=== PATIENT | male | born 1950 | race Caucasian/White ===

== ENCOUNTER 2017-07-28 06:50 | Day surgery (SDC) | payer OTHER ==
[2013-07-28 21:25] VITALS: BMI 23.6
[2017-07-28] MEDS ORDERED: LIDOCAINE 1% 20 ML MDV ID ONE (07:15)
[2017-07-28] MEDS ORDERED: LIDOCAINE 1% 20 ML MDV ID STA (07:22)
[2017-07-28] MEDS ORDERED: DIPRIVAN 20 ML VIAL IVP ONE (08:35)
[2017-07-28] MEDS ORDERED: VERSED ONE (08:35)
--- NOTE | 2017-07-29 06:56 | OP ---
PROCEDURE: COLONOSCOPY TO THE CECUM WITH SNARE POLYPECTOMY. ENDOSCOPIST: Jam MCCOY M.D. INDICATION: HISTORY OF POLYPS. INSTRUMENT: [employer]ista App-[id number]. MEDICATION: PER ANESTHESIA. PROCEDURE: The patient was positioned for colonoscopy. The digital rectal exam was negative. The colonoscope was inserted through the anus and advanced to the cecum. The cecum was identified using the ileocecal valve and the appendiceal orifice as landmarks. The scope was slowly withdrawn through an adequately prepped colon. The [place] Bowel Prep score was 2+3+3=8. Two small polyps at 60 cm removed using snare cautery. Scattered diverticula in the left colon. Retroflex exam was otherwise normal. Withdrawal time 10 minutes , 2 seconds. PLAN: 1. Repeat colonoscopy in 5 years. CC: DR. JHONATAN JAFFE
[2017-07-29 13:53] VITALS: BP 120/64; TEMP 98.6
== END 2017-07-28 09:30 | disposition home or self-care (01) ==
LOC: SURG 06:50
PROVIDERS: ATTEND Internal Medicine Gastroenterology
DX: Z09 Encounter for follow-up examination after completed treatment for conditions other than malignant neoplasm (principal); Z86.010 Personal history of colon polyps; D12.4 Benign neoplasm of descending colon; K57.30 Diverticulosis of large intestine without perforation or abscess without bleeding

== ENCOUNTER 2018-06-26 08:16 | Outpatient (CLI) | payer OTHER ==
[2013-07-28 21:25] VITALS: BMI 23.6
--- NOTE | 2018-06-26 11:19 | MRI ---
EXAM: MRI brain without IV contrast. DATE: 26 July 2018. HISTORY: Memory loss x1 year. TECHNIQUE: Sagittal T1W, axial T2W, axial FLAIR, axial T1W, axial DWI, and coronal T2W GRE sequences of the brain were obtained using 1.2 Brionna magnet. No IV contrast. COMPARISON: None. FINDINGS: The ventricles, cisterns, sulci and subarachnoid spaces are enlarged due to involutional c hange. No midline shift, mass effect or abnormal extra-axial fluid collection is apparent. No acute infarct, hemorrhage or neoplasm is identified. Minimal T2W/FLAIR hyperintensity is observed in the white matter abutting each lateral ventricle. T2W slightly bright, T1W/IR intermediate signal in the anterior horn right lateral ventricle measures approximately 8.5 x 6.2 x 5.5 mm. Mildly prominent V irchow-Antoine spaces are observed within the inferior aspect of each basal ganglia. The pena - white matter differentiation is normal. The 7th/8th cranial nerve complexes, cerebellopontine angles, brai nstem, and visible cervical spinal cord are normal. There is no cerebellar tonsillar ectopia. The p ituitary gland is normal in size and signal. Corpus callosum is normal in size and configuration. R ight vertebral artery is diminutive in size. Left vertebral artery is dominant. Flow voids are pres ent in the major intracranial arteries and in the dural venous sinuses. No aneurysm, AVM or dural ve nous sinus thrombosis is apparent. No orbit abnormality is identified. The mastoid air cells are un remarkable. There is no acute sinusitis. No neck mass or lymphadenopathy is detected. No calvarial neoplasm or acute fracture is evident. IMPRESSIONS: 1. No acute infarct, hemorrhage, intra-axial neoplasm or hydrocephalus. 2. Minor cerebral leukomalacia - likely small vessel disease. 3. Moderate cerebral and mild cerebellar atrophy. Unexpected findin. Possible subependymal vs intraluminal nodule in the anterior horn right late ral ventricle. Recommend contrast-enhanced MRI for further evaluation.
== END 2018-06-26 08:17 | disposition home or self-care (01) ==
LOC: RAD 08:16
PROVIDERS: ATTEND Family Medicine
DX: R41.3 Other amnesia (principal)

== ENCOUNTER 2018-07-08 08:12 | Outpatient (CLI) ==
[2013-07-28 21:25] VITALS: BMI 23.6
--- NOTE | 2018-07-08 11:34 | MRI ---
EXAM: MRI brain with IV contrast. DATE: 07/08/2018. HISTORY: Memory loss. Anterior horn right ventricle abnormality on previous MRI. TECHNIQUE: Sagittal T1W pre and post contrast, axial T1W postcontrast, and coronal T1W postcontrast sequences of the brain were obtained using 1.2 Brionna magnet. CONTRAST: Dotarem - 17 ml IV. COMPARISON: MRI brain 26 June 2018. FINDINGS: A 8.7 x 7.3 x 7.3 mm, T1W slightly hypointense subtle minimal focus indenting the anterior horn the right lateral ventricle is redemonstrated. This structure demonstrates precontrast MARLENE = 5 82, and MARLENE postcontrast = 457. No other similar lesions are identified. The ventricles, cisterns, sulci and subarachnoid spaces are enlarged due to involutional change. No midline shift, mass effect or abnormal extra-axial fluid collection is apparent. No acute infarct or hemorrhage is identified. No abnormal contrast enhancement is identified in the brain, meninges or dura. Mildly prominent Virchow-Antoine spaces are observed at the inferior aspect of each basal gangli a. The pena - white matter differentiation is normal. No migration or diverticulation abnormality i s identified. The amygdala, hippocampus, and parahippocampal gyri are similar bilaterally. The 7th/ 8th cranial nerve complexes, cerebellopontine angles, brainstem, and visible cervical spinal cord are normal. There is no cerebellar tonsillar ectopia. The pituitary gland is normal in size and signal . Corpus callosum is normal in size and configuration. Flow voids are present in the major intracra nial arteries and in the dural venous sinuses. No aneurysm, AVM or dural venous sinus thrombosis is apparent. No orbit abnormality is identified. The mastoid air cells are unremarkable. There is no acute sinusitis. No neck mass or lymphadenopathy is detected. No calvarial neoplasm or acute fractu re is evident. IMPRESSIONS: 1. Right subependymal nodule indenting the anterior horn right lateral ventricle does not enhance. This favors a benign process. Correlation with CT scan may be helpful to determine this has partiall y calcified. 2. No acute infarct, hemorrhage, enhancing neoplasm or hydrocephalus. 3. Moderate cerebral and mild cerebellar atrophy.
== END 2018-07-08 08:13 | disposition home or self-care (01) ==
LOC: RAD 08:12
PROVIDERS: ATTEND Family Medicine
DX: F03.90 Unspecified dementia, unspecified severity, without behavioral disturbance, psychotic disturbance, mood disturbance, and anxiety (principal)